=== PATIENT | male | born 1970 | race Caucasian/White ===

== ENCOUNTER 2017-08-27 06:51 | Emergency (ER) | payer BC ==
[2017-08-27] MEDS ORDERED: ONDANSETRON HCL 8 MG TABLET PO ONE (07:24)
[2017-08-27] MEDS ORDERED: KETOROLAC TROMETHAMINE 60 MG/2 ML SDV IM ONE (07:24)
--- NOTE | 2017-08-27 07:24 | ER Document Report ---
ED General - General Chief Complaint: Possible Kidney Stone Stated Complaint: FLANK PAIN Time Seen by Provider: 08/27/17 07:06 Mode of Arrival: Ambulatory Information source: Patient Notes: 47-year-old male presents with complaints of flank pain. Patient notes the pain is on the left flank, started last night, used warm bath no imporvement. pt denies any fevers or chills. admits to nausea and dry heaves. pt notes that the symptoms have worsened. last kidney stone was 4 years ago. denies any fevers or chills. TRAVEL OUTSIDE OF THE [place] IN LAST 30 DAYS: No - HPI Onset: Yesterday Onset/Duration: Sudden Quality of pain: Sharp Severity: Moderate Pain Level: 3 Associated symptoms: Nausea Exacerbated by: Denies Relieved by: Denies Similar symptoms previously: Yes Recently seen / treated by doctor: No - Related Data Allergies/Adverse Reactions: No Known Allergies Allergy (Verified 08/27/17 08:32) Past Medical History - Social History Smoking Status: Never Smoker Cigarette use (# per day): No Chew tobacco use (# tins/day): No Smoking Education Provided: No Family History: Reviewed & Not Pertinent - Past Medical History Cardiac Medical History: Reports: Hx Hypertension - DX 4 YEARS AGO Pulmonary Medical History: Denies: Hx Tuberculosis Renal/ Medical History: Reports: Hx Kidney Stones Past Surgical History: Denies: Hx Adenoidectomy, Hx Pacemaker - Immunizations Hx Diphtheria, Pertussis, Tetanus Vaccination: Yes Review of Systems - Review of Systems Notes: REVIEW OF SYSTEMS: CONSTITUTIONAL : Denies fever, chills, or sweats. Denies recent illness. EENT: Denies eye, ear, throat, or mouth pain or symptoms. Denies nasal or sinus congestion or discharge. Denies throat, tongue, or mouth swelling or difficulty swallowing. CARDIOVASCULAR: Denies chest pain. Denies palpitations or racing or irregular heart beat. Denies ankle edema. RESPIRATORY: Denies cough, cold, or chest congestion. Denies shortness of breath, difficulty breathing, or wheezing. GASTROINTESTINAL: Admits to flank pain GENITOURINARY: Admits to difficulty urinating MUSCULOSKELETAL: Denies back or neck pain or stiffness. Denies joint pain or swelling. SKIN: Denies rash, lesions or sores. HEMATOLOGIC : Denies easy bruising or bleeding. LYMPHATIC: Denies swollen, enlarged glands. NEUROLOGICAL: Denies confusion or altered mental status. Denies passing out or loss of consciousness. Denies dizziness or lightheadedness. Denies headache. Denies weakness or paralysis or loss of use of either side. Denies problems with gait or speech. Denies sensory loss, numbness, or tingling. Denies seizures. PSYCHIATRIC: Denies anxiety or stress. Denies depression, suicidal ideation, or homicidal ideation. ALL OTHER SYSTEMS REVIEWED AND NEGATIVE. Dictation was performed using [employer] voice recognition software PHYSICAL EXAMINATION: GENERAL: Well-appearing, well-nourished and in no acute distress. HEAD: Atraumatic, normocephalic. EYES: Pupils equal round and reactive to light, extraocular movements intact, sclera anicteric, conjunctiva are normal. ENT: Nares patent, oropharynx clear without exudates. Moist mucous membranes. NECK: Normal range of motion, supple without lymphadenopathy LUNGS: Breath sounds clear to auscultation bilaterally and equal. No wheezes rales or rhonchi. HEART: Regular rate and rhythm without murmurs ABDOMEN: Soft, nontender, nondistended abdomen left CVA tenderness noted. No guarding, no rebound. No masses appreciated. Musculoskeletal: Normal range of motion, no pitting or edema. No cyanosis. NEUROLOGICAL: Cranial nerves grossly intact. Normal speech, normal gait. Normal sensory, motor exams PSYCH: Normal mood, normal affect. SKIN: Warm, Dry, normal turgor, no rashes or lesions noted. Physical Exam - Vital signs Vitals: Temp Pulse Resp BP Pulse Ox 98.1 F 85 16 185/110 H 100 08/27/17 06:56 08/27/17 06:56 08/27/17 06:56 08/27/17 06:56 08/27/17 06:56 Course - Re-evaluation Re-evalutation: 08/27/17 07:56 Patient's presentation is most consistent with a kidney stone, I did offer a CT he wishes to defer at this time urinalysis is pending 08/27/17 08:59 Patient notes flank pain has improved significantly, urinalysis notes no sign of infection, will discharge symptomatically After performing a Medical Screening Examination, I estimate there is LOW risk for ACUTE APPENDICITIS, BOWEL OBSTRUCTION, ACUTE CHOLECYSTITIS, PERFORATED DIVERTICULITIS, INCARCERATED HERNIA, PANCREATITIS, TESTICULAR TORSION or PERFORATED ULCER, thus I consider the discharge disposition reasonable. Also, there is no evidence or peritonitis, sepsis, or toxicity. I have reevaluated this patient multiple times and no significant life threatening changes are noted. The patient and I have discussed the diagnosis and risks, and we agree with discharging home with close follow-up with the understanding that symptoms and presentations can change. We also discussed returning to the Emergency Department immediately if new or worsening symptoms occur. We have discussed the symptoms which are most concerning (e.g., bloody stool, fever, changing or worsening pain, intractable vomiting - standard verbal up date) that necessitate immediate return. - Vital Signs Vital signs: Temp Pulse Resp BP Pulse Ox 98.1 F 107 H 18 161/91 H 99 08/27/17 08:18 08/27/17 08:18 08/27/17 08:18 08/27/17 08:18 08/27/17 08:18 - Laboratory Laboratory results interpreted by me: 08/27/17 08:05 Urine Protein 30 H Urine Glucose (UA) 150 H Urine Ketones TRACE H Urine Blood MODERATE H Discharge - Discharge Clinical Impression: Kidney stone HTN (hypertension) Qualifiers: Hypertension type: essential hypertension Qualified Code(s): I10 - Essential ( primary) hypertension Condition: Stable Disposition: HOME, SELF-CARE Instructions: Kidney Stone ([facility]) Prescriptions: Ketorolac Tromethamine [Toradol 10 mg Tablet] 10 mg PO Q8 #9 tablet Metoclopramide HCl [Reglan 10 mg Tablet] 1 - 2 tab PO Q6 #25 tablet Oxycodone HCl/Acetaminophen [Percocet 5-325 mg Tablet] 1 tab PO Q6 #15 tab Tamsulosin HCl [Flomax 0.4 mg Cap.sr] 0.4 mg PO DAILY #7 cap.sr.24h Forms: Return to Work Referrals: SARA ANDERSON [NO LOCAL MD] - Follow up as needed MARYSOL LANDEROS MD [TI BARBOZA] - Follow up as needed
[2017-08-27 08:36] LABS: APPEARANCE,URINE CLEAR; BILIRUBIN,URINE NEGATIVE (NEGATIVE); COLOR,URINE YELLOW; GLUCOSE, URINE 150 mg/dL (NEGATIVE); KETONES,URINE TRACE mg/dL (NEGATIVE); LEUKOCYTE ESTERASE,URINE NEGATIVE (NEGATIVE); NITRITE,URINE NEGATIVE (NEGATIVE); PROTEIN,URINE 30 mg/dL (NEGATIVE); URINE SPECIFIC GRAVITY 1.018; UROBILINOGEN,URINE NEGATIVE mg/dL (<2.0)
[2017-08-27 09:14] VITALS: BP 144/89
== END 2017-08-27 09:14 | disposition home or self-care (01) ==
LOC: ER 06:51
DX: N20.0 Calculus of kidney (principal); R10.9 Unspecified abdominal pain; I10 Essential (primary) hypertension; R11.0 Nausea; Z87.442 Personal history of urinary calculi
CPT/HCPCS: 99284; 96372; 81001; J1885; S0119

== ENCOUNTER 2020-03-24 22:39 | Inpatient (IN) | payer BC ==
--- NOTE | 2020-03-24 23:14 | ER Document Report ---
ED Medical Screen (RME) - General Stated Complaint: COVID POS TROUBLE BREATHING Time Seen by Provider: 03/24/20 23:09 Primary Care Provider: CHAZ RODRIGUEZ MD [Primary Care Provider] - Follow up as needed Notes: Patient states he has been sick for the past week and tested positive for Covid today. Patient reports difficulty breathing that started this evening. Patient reports mild fever with some chest discomfort. Patient denies any nausea vomiting or diarrhea. Patient does have a history of hypertension, diabetes, dyslipidemia, migraines and a previous TIA. I have greeted and performed a rapid initial assessment of this patient. A comprehensive ED assessment and evaluation of the patient, analysis of test results and completion of the medical decision making process will be conducted by additional ED providers. TRAVEL OUTSIDE OF THE [place] IN LAST 30 DAYS: No - Related Data Allergies/Adverse Reactions: No Known Allergies Allergy (Verified 08/27/17 08:32) Past Medical History - Past Medical History Cardiac Medical History: Reports: Hx Hypercholesterolemia, Hx Hypertension - DX 4 YEARS AGO Pulmonary Medical History: Denies: Hx Tuberculosis Endocrine Medical History: Reports: Hx Diabetes Mellitus Type 1 Renal/ Medical History: Reports: Hx Kidney Stones. Denies: Hx Peritoneal Dialysis Past Surgical History: Denies: Hx Adenoidectomy, Hx Pacemaker - Immunizations Hx Diphtheria, Pertussis, Tetanus Vaccination: Yes Physical Exam - Vital signs Vitals: Temp Pulse Resp BP Pulse Ox 98.5 F 112 H 23 H 185/113 H 88 L 03/24/20 22:49 03/24/20 22:49 03/24/20 22:49 03/24/20 22:49 03/24/20 22:49 - Respiratory Respiratory status: Tachypnea Breath sounds: Nonproductive cough, Rales - Cardiovascular Rhythm: Regular Heart sounds: S1 appreciated, S2 appreciated Course - Vital Signs Vital signs: Temp Pulse Resp BP Pulse Ox 98.5 F 112 H 23 H 185/113 H 88 L 03/24/20 22:49 03/24/20 22:49 03/24/20 22:49 03/24/20 22:49 03/24/20 22:49 Doctor's Discharge - Discharge Referrals: CHAZ RODRIGUEZ MD [Primary Care Provider] - Follow up as needed
[2020-03-25 02:21] LABS: ABSOLUTE MONOCYTES (AUTO) 0.5 10^3/uL (0.1-1.4); ABSOLUTE NEUT (AUTO) 6.1 10^3/uL (1.7-8.2); BASOPHILS % (AUTO) 0.2 % (0-2); HEMATOCRIT 43.7 % (37.9-51.0); HEMOGLOBIN 14.9 g/dL (13.5-17.0); LYMPHOCYTES % (AUTO) 13.5 % (13-45); MEAN CORPUSCULAR HEMOGLOBIN 27.6 pg (27.0-33.4); MEAN CORPUSCULAR HGB CONC 34.1 g/dL (32.0-36.0); MEAN CORPUSCULAR VOLUME 81 fl (80-97); MONOCYTES % (AUTO) 6.2 % (3-13); PLATELET COUNT 264 10^3/uL (150-450); RED BLOOD COUNT 5.42 10^6/uL (4.35-5.55); SEGMENTED NEUTROPHILS % (AUTO) 80.1 % (42-78); TOTAL CELLS COUNTED % (AUTO) 100 %; WHITE BLOOD COUNT 7.6 10^3/uL (4.0-10.5)
[2020-03-25 02:36] LABS: ALBUMIN 3.6 g/dL (3.5-5.0); ALKALINE PHOSPHATASE 82 U/L (38-126); ANION GAP 10 (5-19); ASPARTATE AMINO TRANSFERASE 56 U/L (17-59); BILIRUBIN,DIRECT 0.3 mg/dL (0.0-0.4); BILIRUBIN,TOTAL 0.8 mg/dL (0.2-1.3); BLOOD UREA NITROGEN 23 mg/dL (7-20); CALCIUM 9.1 mg/dL (8.4-10.2); CARBON DIOXIDE 30 mmol/L (22-30); CHLORIDE 104 mmol/L (98-107); GLUCOSE 169 mg/dL (75-110); POTASSIUM 4.5 mmol/L (3.6-5.0); TOTAL PROTEIN 6.7 g/dL (6.3-8.2)
--- NOTE | 2020-03-25 03:50 | RADIOLOGY REPORT (SQ) ---
CHEST X-RAY 1 VIEW on 03/25/2020 at 3:05 AM CLINICAL INDICATION: Chest pain, shortness of breath, positive COVID 19 COMPARISON: 01/17/2012 FINDINGS: There has been development of extensive bilateral interstitial and airspace opacities consistent with COVID 19 pneumonia. Vascular calcification is noted in the aorta. Cardiac, hilar and mediastinal contours are within normal limits. IMPRESSION: Development of bilateral COVID 19 pneumonia.
[2020-03-25] MEDS ORDERED: NORMAL SALINE 1000 ML 1,000 ML IV ONE (06:34)
[2020-03-25] MEDS ORDERED: LISINOPRIL 10 MG TABLET PO ONE (06:34)
[2020-03-25] MEDS ORDERED: LABETALOL HCL INJ 20 MG/4 ML DISP.SYRIN IV ONE (06:34)
[2020-03-25] MEDS ORDERED: AZITHROMYCIN INJ 500 MG VIAL IV ONE (06:35)
[2020-03-25] MEDS ORDERED: CEFTRIAXONE INJ 1000 MG VIAL IV ONE (06:35)
--- NOTE | 2020-03-25 06:41 | ER Document Report ---
ED General - General Chief Complaint: Breathing Difficulty Stated Complaint: COVID POS TROUBLE BREATHING Time Seen by Provider: 03/24/20 23:09 Primary Care Provider: CHAZ HALE MD [Primary Care Provider] - Follow up as needed TRAVEL OUTSIDE OF THE [place] IN LAST 30 DAYS: No - HPI Notes: Chief complaint: Cough and difficulty breathing History of present illness: 50-year-old male non-smoker followed by Dr. Danyel Hale with history of diabetes mellitus type 2, hypertension, hyperlipidemia and recurrent nephrolithiasis now presents with 1 week history of cough and scant dark sputum production with some pleuritic discomfort. No fever. Nausea wit hout vomiting. No definite history of Covid exposure. 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 - Related Data Allergies/Adverse Reactions: No Known Allergies Allergy (Verified 08/27/17 08:32) Past Medical History - General Information source: Patient - Social History Smoking Status: Never Smoker Chew tobacco use (# tins/day): No Frequency of alcohol use: None Drug Abuse: None Family History: Reviewed & Not Pertinent - Past Medical History Cardiac Medical History: Reports: Hx Hypercholesterolemia, Hx Hypertension - DX 4 YEARS AGO Pulmonary Medical History: Denies: Hx Tuberculosis Neurological Medical History: Reports: Hx Migraine Endocrine Medical History: Reports: Hx Diabetes Mellitus Type 2. Denies: Hx Diabetes Mellitus Type 1 Renal/ Medical History: Reports: Hx Kidney Stones. Denies: Hx Peritoneal Dialysis Past Surgical History: Denies: Hx Adenoidectomy, Hx Pacemaker - Immunizations Hx Diphtheria, Pertussis, Tetanus Vaccination: Yes Review of Systems - Review of Systems Notes: Constitutional: Negative for fever. HENT: Negative for sore throat. Eyes: Negative for visual changes. Cardiovascular: Bilateral pleuritic chest pain which is mild. Respiratory: As per HPI. Gastrointestinal: As per HPI. Genitourinary: Negative for dysuria. Musculoskeletal: Negative for back pain. Skin: Negative for rash. Neurological: Negative for headaches, weakness or numbness. 10 point ROS negative except as marked above and in HPI. Physical Exam - Vital signs Vitals: Temp Pulse Resp BP Pulse Ox 98.5 F 112 H 23 H 185/113 H 88 L 03/24/20 22:49 03/24/20 22:49 03/24/20 22:49 03/24/20 22:49 03/24/20 22:49 - Notes Notes: GENERAL: Middle-age male who appears mildly tachypneic. SKIN: Good turgor no rashes. HEAD: Normocephalic atraumatic. EYES: PERRLA. EOMI. Conjunctivae and sclerae clear. EARS: CANALS AND TMS CLEAR. NOSE: CLEAR. MOUTH: Moist mucosa. Good dentition. No stridor or edema. No drooling. NECK: Supple. No masses or thyromegaly. No adenopathy. Carotids 2+ without bruits. No JVD. BACK: Symmetrical without tenderness. CHEST: Rattling cough. Mildly tachypneic no use of accessory muscles. Breath sounds symmetrical with scattered rhonchi bilaterally. HEART: Regular rhythm. No murmur gallop or rub. ABDOMEN: Mildly obese. Soft nontender without masses, organomegaly or rebound. Bowel sounds normally active. No bruits. GENITALIA: Deferred. EXTREMITIES: No edema. No calf tenderness. Cap refill less than 1.5 seconds. Dorsalis pedis and posterior tibial pulses 3+ and symmetrical. NEUROLOGICAL: GCS 15. Alert and oriented x3. Normal gait. Fluent speech. Cranial nerves II through XII intact. Sensorimotor and cerebellar normal. Normal tone. PSYCHIATRIC: Appropriate affect. Course - Re-evaluation Re-evalutation: 03/25/20 07:26 Bilateral infiltrates consistent with Covid pneumonia unknown seropositivity for Covid. Clinical findings are consistent with progression of Covid pneumonia. New oxygen requirement. IV steroids. Additional coverage for potential bacterial superinfection of the lungs. Admitted by the hospitalist service. Patient was accepted for admission by Dr. Hernández - Vital Signs Vital signs: Temp Pulse Resp BP Pulse Ox 98.2 F 112 H 31 H 200/121 H 94 03/25/20 05:32 03/25/20 03:02 03/25/20 05:33 03/25/20 05:32 03/25/20 05:51 - Laboratory Results Result Diagrams: 03/25/20 01:46 03/25/20 01:46 Laboratory Results Interpreted: 03/25/20 03/25/20 01:46 01:46 Seg Neutrophils % 80.1 H BUN 23 H Glucose 169 H Critical Laboratory Results Reviewed: Yes Attending or Supervising Physician who Reviewed Labs: MARK BARRON - Radiology Results Radiology Results Interpreted: 03/25/20 07:23 Chest X-Ray 03/24/20 23:13 IMPRESSION: Development of bilateral COVID 19 pneumonia. Critical Radiology Results Reviewed: Yes Attending or Supervising Physician who Reviewed Radiology: MARK BARRON - EKG Interpretation by Me Additional EKG results interpreted by me: 03/25/20 07:24 Twelve-lead EKG reviewed by me contemporaneously: 03/24/2019 2322 hrs. Indication for study: Chest pain Rhythm: Sinus tachycardia Rate: 109 Intervals: Borderline QT prolongation with QTC 480 ms QRS axis: +[address]/T wave changes: None Comparison with prior tracing: Since prior tracing of 01/17/2012 the patient's rate has increased and there is new QT prolongation Interpretation: Sinus tachycardia and QT prolongation Discharge - Discharge Clinical Impression: COVID-19 positive test (U07.1, COVID-1 Bilateral pneumonia Qualifiers: Pneumonia type: due to unspecified organism Lung location: unspecified part of lung Qualified Code(s): J18.9 - Pneumonia, unspecified organism Condition: Fair Disposition: ADMITTED INPATIENT Admitting Provider: Dr. Diaz Unit Admitted: Medical Floor Referrals: CHAZ HALE MD [Primary Care Provider] - Follow up as needed
[2020-03-25] MEDS ORDERED: ONDANSETRON HCL INJ/PF 4 MG/2 ML SDV IV ONE (06:53)
[2020-03-25] MEDS ORDERED: DEXAMETHASONE SOD PHOS INJ 10 MG/1 ML VIAL IV ONE (07:23)
[2020-03-25 07:30] LABS: ARTERIAL BLOOD BASE EXCESS 2.4 mmol/L; ARTERIAL BLOOD FIO2 2L; ARTERIAL BLOOD O2 SATURATION 91.7 % (94-98); ARTERIAL BLOOD PCO2 33.1 mmHg (35-45)
--- NOTE | 2020-03-25 07:50 | EKG REPORT ---
SEVERITY:- ABNORMAL ECG - SINUS TACHYCARDIA LEFT ATRIAL ABNORMALITY BORDERLINE RIGHT AXIS DEVIATION BORDERLINE PROLONGED QT INTERVAL : Confirmed by: Dillon Mcallister MD 25-Mar-2020 07:49:11
[2020-03-25] MEDS ORDERED: CEFTRIAXONE 1 GM/D5W RTU 1 GM/50 ML RTUPB IV ONE (09:00)
[2020-03-25] MEDS ORDERED: DEXTROSE 50%-WATER 25 GM/50 ML DISP.SYRIN IV PRN ×2 (10:18)
[2020-03-25] MEDS ORDERED: GLUCAGON,HUMAN RECOMB 1 MG INJ IM PRN (10:18)
[2020-03-25] MEDS ORDERED: DEXTROSE 40% GEL 15 GM TUBE PO PRN ×2 (10:18)
[2020-03-25] MEDS ORDERED: ONDANSETRON HCL INJ/PF 4 MG/2 ML SDV IV PRN (10:21)
[2020-03-25] MEDS ORDERED: ACETAMINOPHEN 325 MG TABLET PO PRN (10:21)
--- NOTE | 2020-03-25 10:35 | PDOC H&P ---
History of Present Illness Admission Date/PCP: 03/25/20 07:44 CHAZ RODRIGUEZ MD History of Present Illness: STACY BROOKS is a 50 year old male with a history of obesity, hypertension, non -insulin-dependent diabetes mellitus, hyperlipidemia, and a reported history of a TIA 13 years ago. He presents with worsening shortness of breath. He says that he first started feeling bad a little over a week ago, approximately 1 to 2 days before Bassem. He said he is mostly just felt fatigue and malaise, and he had a bit of a cough that developed after several days. He went to a local urgent care and got tested for coronavirus, and he said he tested positive. He was not hypoxic and so he was sent home. He said he has not taken anything for his symptoms other than some [id number] cough syrup. He said he had worsening shortness of breath over the past couple of days, progressing to the point that he cannot walk more than a few steps without getting really short of breath. His oxygen saturations were in the upper 80s on room air and he was a little tachypneic, and he has been put on 3 L on the nasal cannula and his saturations are now in the mid to upper 90s. He is not had a fever that he knows of for certain. He has never smoked and does not wear oxygen at home. He was noted to have bilateral patchy opacities on chest x-ray. He was a little tachycardic. Past Medical History Cardiac Medical History: Reports: Hyperlipidema, Hypertension - DX 4 YEARS AGO Pulmonary Medical History: Denies: Tuberculosis Neurological Medical History: Reports: Migraine Endocrine Medical History: Reports: Diabetes Mellitus Type 2 Denies: Diabetes Mellitus Type 1 Past Surgical History Past Surgical History: Denies: Pacemaker Social History Smoking Status: Never Smoker Electronic Cigarette use?: No Hx Recreational Drug Use: No Hx Prescription Drug Abuse: No Family History Family History: Reviewed & Not Pertinent Parental Family History Reviewed: No - Unknown Children Family History Reviewed: Unknown Sibling(s) Family History Reviewed.: Unknown Medication/Allergy Home Medications: No Home Medications 1 01/17/12 Alprazolam [Xanax 0.5 mg Tablet] 0.5 mg PO BIDP PRN #0 tablet 01/20/12 Amlodipine Besylate [Norvasc 5 mg Tablet] 5 mg PO DAILY #0 tablet 01/20/12 Aspirin [Aspirin 325 mg Tablet] 325 mg PO DAILY #0 tablet 01/20/12 Lisinopril [Prinivil 10 mg Tablet] 10 mg PO Q12 #0 tablet 01/20/12 Simvastatin [Zocor 40 mg Tablet] 40 mg PO QHS #0 tablet 01/20/12 Escitalopram Oxalate [Lexapro] 03/25/12 Metoprolol Tartrate [Lopressor 25 Mg Tablet] 25 mg PO 03/25/12 Ketorolac Tromethamine [Toradol 10 mg Tablet] 10 mg PO Q8 #9 tablet 08/27/17 Metoclopramide HCl [Reglan 10 mg Tablet] 1 - 2 tab PO Q6 #25 tablet 08/27/17 Oxycodone HCl/Acetaminophen [Percocet 5-325 mg Tablet] 1 tab PO Q6 #15 tab 08/27/17 Tamsulosin HCl [Flomax 0.4 mg Cap.sr] 0.4 mg PO DAILY #7 cap.sr.24h 08/27/17 Allergies/Adverse Reactions: No Known Allergies Allergy (Verified 08/27/17 08:32) Review of Systems All systems: reviewed and no additional remarkable complaints except as stated - All systems were reviewed and were negative except as noted in the HPI Physical Exam Vital Signs: Temp Pulse Resp BP Pulse Ox 98.8 F 112 H 32 H 155/95 H 94 03/25/20 08:14 03/25/20 03:02 03/25/20 08:01 03/25/20 08:01 03/25/20 08:01 Intake & Output 03/24/20 03/25/20 03/26/20 06:59 06:59 06:59 Intake Total 1050 Output Total 350 Balance 700 Weight 101.9 kg General appearance: PRESENT: cooperative, disheveled, mild distress, obese Head exam: PRESENT: atraumatic, normocephalic Eye exam: PRESENT: EOMI, PERRLA. ABSENT: conjunctival injection, nystagmus, scleral icterus Ear exam: PRESENT: normal external ear exam Neck exam: PRESENT: full ROM. ABSENT: carotid bruit, JVD, lymphadenopathy, meningismus, tenderness, thyromegaly Respiratory exam: PRESENT: crackles - Bibasilar, symmetrical, tachypnea, unlabored. ABSENT: accessory muscle use, chest wall tenderness, prolonged expiratory phas, rhonchi, wheezes Cardiovascular exam: PRESENT: +S1, +S2, tachycardia Pulses: PRESENT: normal carotid pulses Vascular exam: PRESENT: normal capillary refill GI/Abdominal exam: PRESENT: normal bowel sounds, soft. ABSENT: distended, guarding, rebound, tenderness Extremities exam: ABSENT: clubbing, pedal edema Musculoskeletal exam: PRESENT: normal inspection. ABSENT: deformity Neurological exam: PRESENT: alert, awake, oriented to person, oriented to place, oriented to time, oriented to situation, CN II-XII grossly intact. ABSENT: motor sensory deficit Psychiatric exam: PRESENT: anxious Skin exam: PRESENT: dry, warm Results Laboratory Results: 03/25/20 01:46 03/25/20 01:46 03/25/20 03/25/20 03/25/20 01:46 01:46 06:44 WBC 7.6 RBC 5.42 Hgb 14.9 Hct 43.7 MCV 81 MCH 27.6 MCHC 34.1 RDW 14.0 Plt Count 264 Seg Neutrophils % 80.1 H Carbonic Acid 1.00 L HCO3/H2CO3 Ratio 25:1 ABG pH 7.50 H ABG pCO2 33.1 L ABG pO2 56.0 L ABG HCO3 25.0 H ABG O2 Saturation 91.7 L ABG Base Excess 2.4 FiO2 2L Sodium 143.8 Potassium 4.5 Chloride 104 Carbon Dioxide 30 Anion Gap 10 BUN 23 H Creatinine 1.24 Est GFR ( Amer) > 60 Glucose 169 H Calcium 9.1 Total Bilirubin 0.8 AST 56 Alkaline Phosphatase 82 Total Protein 6.7 Albumin 3.6 03/25/20 01:46 Troponin I 0.016 Impressions: Chest X-Ray 03/24/20 23:13 IMPRESSION: Development of bilateral COVID 19 pneumonia. Assessment and Plan - Diagnosis (1) Acute hypoxemic respiratory failure Is this a current diagnosis for this admission?: Yes (2) Pneumonia due to COVID-19 virus Is this a current diagnosis for this admission?: Yes (3) Non-insulin dependent diabetes mellitus Is this a current diagnosis for this admission?: Yes (4) Obesity (BMI 30-39.9) Is this a current diagnosis for this admission?: Yes (5) Hypertension Qualifiers: Hypertension type: essential hypertension Qualified Code(s): I10 - Essential (primary) hypertension Is this a current diagnosis for this admission?: Yes - Plan Summary Summary: Due to the current literature that shows that convalescent plasma and remdesivir are ineffective, we will treat him with the MATH+ protocol, consisting of IV Solu-Medrol, ivermectin, doxycycline, vitamin B complex, vitamin C, vitamin D3, melatonin, and zinc. We will check his ferritin and CRP levels and follow the trend. We will try to keep his magnesium greater than 2. We will use supplemental O2 to maintain SPO2 greater than 90%. If his breathing deteriorates, will escalate his steroids. We anticipate that his glucoses will go higher because the IV steroids we will cover him with an insulin sliding scale. Cardiac and diabetic diet. We will resume his home antihypertensives. DVT prophylaxis for now, if his D-dimer comes back greater than 1 we will therapeutically anticoagulate. - Time Time Spent with patient: 35 or more minutes Anticipated Discharge Disposition: Unknown Anticipated Discharge Timeframe: Unknown - Inpatient Certification Based on my medical assessment, after consideration of the patient's comorbidities, presenting symptoms, or acuity I expect that the services needed warrant INPATIENT care.: Yes I certify that my determination is in accordance with my understanding of Medicare's requirements for reasonable and necessary INPATIENT services [42 CFR 412.3e].: Yes Medical Necessity: Significant Comorbidiites Make Outpatient Treatment Too Risky, Need Close Monitoring Due to Risk of Patient Decompensation, Need For Continuous Telemetry Monitoring, Need for IV Antibiotics, Risk of Complication if Not Cared For in Hospital
[2020-03-25] MEDS: ZINC SULFATE 220 MG CAPSULE PO SCH (11:21)
[2020-03-25] MEDS: ASCORBIC ACID 500 MG TABLET PO SCH ×3 (11:22→23:56)
[2020-03-25] MEDS: CHOLECALCIFEROL (D3) 1,000 UNIT (25 MCG) TABLET PO SCH (11:22)
[2020-03-25] MEDS ORDERED: IVERMECTIN 3 MG TABLET PO ONE (12:00)
[2020-03-25] MEDS: VITAMIN B COMPLEX TABLET PO SCH (12:09)
[2020-03-25] MEDS: DOXYCYCLINE HYCLATE 100 MG in DEXTROSE 5%-WATER 250 ML IV SCH ×2 (12:10→21:29)
[2020-03-25] MEDS: ENOXAPARIN SODIUM INJ 40 MG/0.4 ML DISP.SYRIN SUBCUT SCH (12:10)
[2020-03-25] MEDS: INSULIN LISPRO 100 UNIT/ML 3 ML VIAL SUBCUT SCH ×3 (14:29→21:30)
[2020-03-25 14:54] LABS: INTERNATIONAL RATION (INR) 0.99; PROTHROMBIN TIME 13.3 SEC (11.4-15.4)
[2020-03-25 14:55] LABS: PARTIAL THROMBOPLASTIN TIME 31.6 SEC (23.5-35.8)
[2020-03-25 14:57] LABS: D-DIMER 2.01 ug/mL (0.00-0.50)
[2020-03-25 15:57] LABS: C-REACTIVE PROTEIN 258.6 mg/L (<10.0)
[2020-03-25] MEDS: METHYLPREDNISOLONE INJ 40 MG/1 ML SDV IV SCH (18:06)
[2020-03-25] MEDS ORDERED: AMLODIPINE BESYLATE 5 MG TABLET PO ONE (20:45)
[2020-03-25] MEDS: MELATONIN 5 MG TABLET PO SCH (21:30)
[2020-03-26] MEDS: METHYLPREDNISOLONE INJ 40 MG/1 ML SDV IV SCH ×2 (05:35→18:18)
[2020-03-26] MEDS: ASCORBIC ACID 500 MG TABLET PO SCH ×4 (05:35→23:36)
[2020-03-26 06:37] LABS: ABSOLUTE LYMPHOCYTES (AUTO) 1.3 10^3/uL (0.5-4.7); ABSOLUTE MONOCYTES (AUTO) 0.7 10^3/uL (0.1-1.4); BASOPHILS % (AUTO) 0.2 % (0-2); HEMATOCRIT 40.4 % (37.9-51.0); HEMOGLOBIN 14.1 g/dL (13.5-17.0); LYMPHOCYTES % (AUTO) 15.8 % (13-45); MEAN CORPUSCULAR HGB CONC 34.9 g/dL (32.0-36.0); MEAN CORPUSCULAR VOLUME 80 fl (80-97); MONOCYTES % (AUTO) 8.7 % (3-13); PLATELET COUNT 300 10^3/uL (150-450); RED BLOOD COUNT 5.02 10^6/uL (4.35-5.55); SEGMENTED NEUTROPHILS % (AUTO) 75.3 % (42-78); TOTAL CELLS COUNTED % (AUTO) 100 %; WHITE BLOOD COUNT 7.9 10^3/uL (4.0-10.5)
[2020-03-26 06:58] LABS: ALBUMIN 3.4 g/dL (3.5-5.0); ALKALINE PHOSPHATASE 72 U/L (38-126); ANION GAP 10 (5-19); ASPARTATE AMINO TRANSFERASE 60 U/L (17-59); BILIRUBIN,DIRECT 0.5 mg/dL (0.0-0.4); BILIRUBIN,TOTAL 0.8 mg/dL (0.2-1.3); BLOOD UREA NITROGEN 29 mg/dL (7-20); CARBON DIOXIDE 26 mmol/L (22-30); CHLORIDE 100 mmol/L (98-107); GLUCOSE 201 mg/dL (75-110); POTASSIUM 4.3 mmol/L (3.6-5.0); TOTAL PROTEIN 6.3 g/dL (6.3-8.2)
[2020-03-26 07:15] LABS: C-REACTIVE PROTEIN 191.1 mg/L (<10.0)
[2020-03-26] MEDS: INSULIN LISPRO 100 UNIT/ML 3 ML VIAL SUBCUT SCH ×4 (07:47→22:16)
[2020-03-26] MEDS: VITAMIN B COMPLEX TABLET PO SCH (09:33)
[2020-03-26] MEDS: DOXYCYCLINE HYCLATE 100 MG in DEXTROSE 5%-WATER 250 ML IV SCH ×2 (09:33→22:17)
[2020-03-26] MEDS: CHOLECALCIFEROL (D3) 1,000 UNIT (25 MCG) TABLET PO SCH (09:33)
[2020-03-26] MEDS: ZINC SULFATE 220 MG CAPSULE PO SCH (09:33)
[2020-03-26] MEDS: AMLODIPINE BESYLATE 5 MG TABLET PO SCH ×2 (09:33→18:18)
[2020-03-26] MEDS: ENOXAPARIN SODIUM INJ 40 MG/0.4 ML DISP.SYRIN SUBCUT SCH (09:33)
--- NOTE | 2020-03-26 18:05 | PDOC PROGRESS REPORT ---
Subjective Date:: 03/26/20 Subjective:: No adverse events overnight. No new complaints. Vital signs been stable. He i s on 3 L and his oxygen saturations are in the mid 90s. He looks very comfortable. He says he feels a lot better today. He has been eating and drinking without difficulty. Reason For Visit: HYPOXEMIA, COIVD PNEUMONIA Physical Exam Vital Signs: Temp Pulse Resp BP Pulse Ox 98.3 F 101 H 22 H 154/91 H 93 03/26/20 16:23 03/26/20 16:23 03/26/20 16:23 03/26/20 16:23 03/26/20 16:23 Intake & Output 03/25/20 03/26/20 03/27/20 06:59 06:59 06:59 Intake Total 2625 800 Output Total 1275 700 Balance 1350 100 Weight 101.9 kg 101.4 kg General appearance: PRESENT: cooperative, disheveled, no apparent distress, obese Respiratory exam: PRESENT: crackles - Bibasilar, symmetrical, unlabored. ABSENT: accessory muscle use, chest wall tenderness, prolonged expiratory phase, rhonchi, wheezes, tachypnea Cardiovascular exam: PRESENT: +S1, +S2, RRR Pulses: PRESENT: normal carotid pulses Vascular exam: PRESENT: normal capillary refill GI/Abdominal exam: PRESENT: normal bowel sounds, soft. ABSENT: distended, guarding, rebound, tenderness Extremities exam: ABSENT: clubbing, pedal edema Musculoskeletal exam: PRESENT: normal inspection. ABSENT: deformity Neurological exam: PRESENT: alert, awake, oriented to person, oriented to place, oriented to time, oriented to situation Psychiatric exam: PRESENT: Appropriate affect, normal mood Skin exam: PRESENT: dry, warm Results Laboratory Results: 03/26/20 06:16 03/26/20 06:16 03/26/20 03/26/20 06:16 06:16 WBC 7.9 RBC 5.02 Hgb 14.1 Hct 40.4 MCV 80 MCH 28.0 MCHC 34.9 RDW 14.0 Plt Count 300 Seg Neutrophils % 75.3 Sodium 136.3 L Potassium 4.3 Chloride 100 Carbon Dioxide 26 Anion Gap 10 BUN 29 H Creatinine 1.19 Est GFR ( Amer) > 60 Glucose 201 H Calcium 9.0 Magnesium 2.0 Ferritin 1020.00 H Total Bilirubin 0.8 AST 60 H Alkaline Phosphatase 72 C-Reactive Protein 191.1 H Total Protein 6.3 Albumin 3.4 L 03/25/20 01:46 Troponin I 0.016 Impressions: Chest X-Ray 03/24/20 23:13 IMPRESSION: Development of bilateral COVID 19 pneumonia. Assessment and Plan - Diagnosis (1) Acute hypoxemic respiratory failure Is this a current diagnosis for this admission?: Yes (2) Pneumonia due to COVID-19 virus Is this a current diagnosis for this admission?: Yes (3) Non-insulin dependent diabetes mellitus Is this a current diagnosis for this admission?: Yes (4) Obesity (BMI 30-39.9) Is this a current diagnosis for this admission?: Yes (5) Hypertension Qualifiers: Hypertension type: essential hypertension Qualified Code(s): I10 - Essential (primary) hypertension Is this a current diagnosis for this admission?: Yes - Plan Summary Summary: We continue with the MATH+ protocol for COVID-19. Patient is showing signs of responding. Heart rate and respiratory rate have come down. He feels like his breathing is more comfortable. Markers of inflammation are trending down. He will receive his second dose of ivermectin tomorrow. We will continue with IV steroids at the current level for now. When he gets off oxygen we can transition him to prednisone. We will continue to wean oxygen as tolerated. We have resumed his home medications for hypertension and hyperlipidemia. - Time Time Spent with patient: 15-24 minutes Anticipated Discharge Disposition: Unknown Anticipated Discharge Timeframe: Unknown
[2020-03-26] MEDS: METOPROLOL TARTRATE 25 MG TABLET PO SCH (18:18)
[2020-03-26] MEDS ORDERED: ATORVASTATIN CALCIUM 20 MG TABLET PO SCH (22:00)
[2020-03-26] MEDS: MELATONIN 5 MG TABLET PO SCH (22:16)
[2020-03-27] MEDS: METHYLPREDNISOLONE INJ 40 MG/1 ML SDV IV SCH (06:01)
[2020-03-27] MEDS: ASCORBIC ACID 500 MG TABLET PO SCH ×2 (06:01→12:43)
[2020-03-27 06:33] LABS: ABSOLUTE LYMPHOCYTES (AUTO) 1.7 10^3/uL (0.5-4.7); ABSOLUTE MONOCYTES (AUTO) 1.2 10^3/uL (0.1-1.4); ABSOLUTE NEUT (AUTO) 12.7 10^3/uL (1.7-8.2); BASOPHILS % (AUTO) 0.2 % (0-2); HEMATOCRIT 39.8 % (37.9-51.0); HEMOGLOBIN 13.4 g/dL (13.5-17.0); LYMPHOCYTES % (AUTO) 10.9 % (13-45); MEAN CORPUSCULAR HEMOGLOBIN 27.3 pg (27.0-33.4); MEAN CORPUSCULAR HGB CONC 33.7 g/dL (32.0-36.0); MEAN CORPUSCULAR VOLUME 81 fl (80-97); MONOCYTES % (AUTO) 7.9 % (3-13); PLATELET COUNT 349 10^3/uL (150-450); RED BLOOD COUNT 4.92 10^6/uL (4.35-5.55); TOTAL CELLS COUNTED % (AUTO) 100 %; WHITE BLOOD COUNT 15.6 10^3/uL (4.0-10.5)
[2020-03-27 07:00] LABS: ALBUMIN 3.3 g/dL (3.5-5.0); ALKALINE PHOSPHATASE 70 U/L (38-126); ANION GAP 11 (5-19); ASPARTATE AMINO TRANSFERASE 53 U/L (17-59); BILIRUBIN,DIRECT 0.5 mg/dL (0.0-0.4); BILIRUBIN,TOTAL 0.7 mg/dL (0.2-1.3); BLOOD UREA NITROGEN 35 mg/dL (7-20); C-REACTIVE PROTEIN 53.2 mg/L (<10.0); CALCIUM 9.2 mg/dL (8.4-10.2); CARBON DIOXIDE 26 mmol/L (22-30); CHLORIDE 100 mmol/L (98-107); GLUCOSE 224 mg/dL (75-110); POTASSIUM 4.6 mmol/L (3.6-5.0); TOTAL PROTEIN 6.1 g/dL (6.3-8.2)
[2020-03-27] MEDS: INSULIN LISPRO 100 UNIT/ML 3 ML VIAL SUBCUT SCH ×2 (08:51→12:43)
[2020-03-27] MEDS ORDERED: IVERMECTIN 3 MG TABLET PO ONE (10:00)
[2020-03-27] MEDS ORDERED: LISINOPRIL 10 MG TABLET PO SCH (10:00)
[2020-03-27] MEDS: DOXYCYCLINE HYCLATE 100 MG in DEXTROSE 5%-WATER 250 ML IV SCH (11:03)
[2020-03-27] MEDS: VITAMIN B COMPLEX TABLET PO SCH (11:04)
[2020-03-27] MEDS: METOPROLOL TARTRATE 25 MG TABLET PO SCH (11:04)
[2020-03-27] MEDS: CHOLECALCIFEROL (D3) 1,000 UNIT (25 MCG) TABLET PO SCH (11:04)
[2020-03-27] MEDS: AMLODIPINE BESYLATE 5 MG TABLET PO SCH (11:04)
[2020-03-27] MEDS: ENOXAPARIN SODIUM INJ 40 MG/0.4 ML DISP.SYRIN SUBCUT SCH (11:05)
[2020-03-27] MEDS: ZINC SULFATE 220 MG CAPSULE PO SCH (11:05)
[2020-03-27 15:25] VITALS: BP 187/97
--- NOTE | 2020-03-27 17:03 | PDOC DISCHARGE SUMMARY ---
Impression - Admit/DC Date/PCP Admission Date/Primary Care Provider: 03/25/20 07:44 CHAZ RODRIGUEZ MD Discharge Date: 03/27/20 - Discharge Diagnosis (1) Acute hypoxemic respiratory failure Is this a current diagnosis for this admission?: Yes (2) Pneumonia due to COVID-19 virus Is this a current diagnosis for this admission?: Yes (3) Non-insulin dependent diabetes mellitus Is this a current diagnosis for this admission?: Yes (4) Obesity (BMI 30-39.9) Is this a current diagnosis for this admission?: Yes (5) Hypertension Is this a current diagnosis for this admission?: Yes - Assessment Summary: We continue with the MATH+ protocol for COVID-19. Patient is showing signs of responding. Heart rate and respiratory rate have come down. He feels like his breathing is more comfortable. Markers of inflammation are trending down. He will receive his second dose of ivermectin tomorrow. We will continue with IV steroids at the current level for now. When he gets off oxygen we can transition him to prednisone. We will continue to wean oxygen as tolerated. We have resumed his home medications for hypertension and hyperlipidemia. - Additional Information Resuscitation Status: Full Code Discharge Diet: Diabetic Discharge Activity: Activity As Tolerated, Balance Activity w/Rest Referrals: CHAZ RODRIGUEZ MD [Primary Care Provider] - (PATIENT WILL MAKE OWN FOLLOW UP APPT. ) Prescriptions: Prednisone 10 mg PO DAILY #48 [email or web address] Home Medications: Metoprolol Tartrate [Lopressor 25 mg Tablet] 25 mg PO BID 03/25/12 Amlodipine Besylate [Norvasc 5 mg Tablet] 5 mg PO BID 03/25/20 Atorvastatin Calcium [Lipitor 20 mg Tablet] 20 mg PO QHS 03/25/20 Lisinopril [Prinivil 10 mg Tablet] 10 mg PO DAILY 03/25/20 Ascorbic Acid [Vitamin C 500 mg Tablet] 1,000 mg PO Q6 tablet 03/27/20 Cholecalciferol (Vitamin D3) [Vitamin D3 1000 Unit Tablet] 2,000 unit PO DAILY tablet 03/27/20 Melatonin [Melatonin 5 mg Tablet] 10 mg PO QHS tablet 03/27/20 Prednisone 10 mg PO DAILY #48 tab.ds.pk 03/27/20 Vitamin B Complex [Vitamin B Complex Tablet] 1 tab PO DAILY tablet 03/27/20 Zinc Sulfate [Zinc-220 Capsule] 220 mg PO DAILY capsule 03/27/20 History of Present Illiness History of Present Illness: STACY BROOKS is a 50 year old male with a history of obesity, hypertension, nyb-[id number] diabetes mellitus, hyperlipidemia, and a reported history of a TIA 13 years ago. He presents with worsening shortness of breath. He says that he first started feeling bad a little over a week ago, approximately 1 to 2 days before Bassem. He said he is mostly just felt fatigue and malaise, and he had a bit of a cough that developed after several days. He went to a local urgent care and got tested for coronavirus, and he said he tested positive. He was not hypoxic and so he was sent home. He said he has not taken anything for his symptoms other than some [id number] cough syrup. He said he had worsening shortness of breath over the past couple of days, progressing to the point that he cannot walk more than a few steps without getting really short of breath. His oxygen saturations were in the upper 80s on room air and he was a little tachypneic, and he has been put on 3 L on the nasal cannula and his saturations are now in the mid to upper 90s. He is not had a fever that he knows of for certain. He has never smoked and does not wear oxygen at home. He was noted to have bilateral patchy opacities on chest x-ray. He was a little tachycardic. Hospital Course Hospital Course: He responded very well to the MATH+ protocol. He was weaned down to room air and his saturations were in the low to mid 90s. He was able to ambulate to the bathroom without getting short of breath. He will continue a prednisone taper at home. He received IV Solu-Medrol and 2 doses of ivermectin here. He will also continue vitamin supplementation at home. He was told to be very strict with his diet as the blood sugars may be elevated while he is on prednisone, but this effect will wear off as he comes off steroids. He verbalizes understanding. He has follow-up with his primary care provider in 1 week. His labs and examination were reassuring and he was discharged in stable condition. Physical Exam Vital Signs: Temp Pulse Resp BP Pulse Ox 97.5 F 96 16 187/97 H 95 03/27/20 15:23 03/27/20 15:23 03/27/20 15:23 03/27/20 15:23 03/27/20 15:23 Intake & Output 03/26/20 03/27/20 03/28/20 06:59 06:59 06:59 Intake Total 2625 2700 510 Output Total 1275 1375 Balance 1350 1325 510 Weight 101.4 kg 101.4 kg General appearance: PRESENT: cooperative, disheveled, no apparent distress, obese Respiratory exam: PRESENT: Clear to auscultation bilaterally, symmetrical, unlabored. ABSENT: accessory muscle use, chest wall tenderness, prolonged expiratory phase, rhonchi, wheezes, tachypnea Cardiovascular exam: PRESENT: +S1, +S2, RRR Pulses: PRESENT: normal carotid pulses Vascular exam: PRESENT: normal capillary refill GI/Abdominal exam: PRESENT: normal bowel sounds, soft. ABSENT: distended, guarding, rebound, tenderness Extremities exam: ABSENT: clubbing, pedal edema Musculoskeletal exam: PRESENT: normal inspection. ABSENT: deformity Neurological exam: PRESENT: alert, awake, oriented to person, oriented to place, oriented to time, oriented to situation Psychiatric exam: PRESENT: Appropriate affect, normal mood Skin exam: PRESENT: dry, warm Results Laboratory Results: WBC 15.6 10^3/uL (4.0-10.5) H 03/27/20 05:30 RBC 4.92 10^6/uL (4.35-5.55) 03/27/20 05:30 Hgb 13.4 g/dL (13.5-17.0) L 03/27/20 05:30 Hct 39.8 % (37.9-51.0) 03/27/20 05:30 MCV 81 fl (80-97) 03/27/20 05:30 MCH 27.3 pg (27.0-33.4) 03/27/20 05:30 MCHC 33.7 g/dL (32.0-36.0) 03/27/20 05:30 RDW 14.0 % (11.5-14.0) 03/27/20 05:30 Plt Count 349 10^3/uL (150-450) 03/27/20 05:30 Lymph % (Auto) 10.9 % (13-45) L 03/27/20 05:30 [place] % (Auto) 7.9 % (3-13) 03/27/20 05:30 Eos % (Auto) 0.0 % (0-6) 03/27/20 05:30 Baso % (Auto) 0.2 % (0-2) 03/27/20 05:30 Absolute Neuts (auto) 12.7 10^3/uL (1.7-8.2) H 03/27/20 05:30 Absolute Lymphs (auto) 1.7 10^3/uL (0.5-4.7) 03/27/20 05:30 Absolute Monos (auto) 1.2 10^3/uL (0.1-1.4) 03/27/20 05:30 Absolute Eos (auto) 0.0 10^3/uL (0.0-0.6) 03/27/20 05:30 Absolute Basos (auto) 0.0 10^3/uL (0.0-0.2) 03/27/20 05:30 Seg Neutrophils % 81.0 % (42-78) H 03/27/20 05:30 PT 13.3 SEC (11.4-15.4) 03/25/20 14:27 INR 0.99 03/25/20 14:27 APTT 31.6 SEC (23.5-35.8) 03/25/20 14:27 D-Dimer 0.95 ug/mL (0.00-0.50) H 03/27/20 05:30 Carbonic Acid 1.00 mmol/L (1.05-1.35) L 03/25/20 06:44 HCO3/H2CO3 Ratio 25:1 03/25/20 06:44 ABG pH 7.50 (7.35-7.45) H 03/25/20 06:44 ABG pCO2 33.1 mmHg (35-45) L 03/25/20 06:44 ABG pO2 56.0 mmHg (80-100) L 03/25/20 06:44 ABG HCO3 25.0 mmol/L (20-24) H 03/25/20 06:44 ABG Total CO2 26.0 mmol/L (23-27) 03/25/20 06:44 ABG O2 Saturation 91.7 % (94-98) L 03/25/20 06:44 ABG Base Excess 2.4 mmol/L 03/25/20 06:44 FiO2 2L 03/25/20 06:44 Sodium 136.7 mmol/L (137-145) L 03/27/20 05:30 Potassium 4.6 mmol/L (3.6-5.0) 03/27/20 05:30 Chloride 100 mmol/L (98-107) 03/27/20 05:30 Carbon Dioxide 26 mmol/L (22-30) 03/27/20 05:30 Anion Gap 11 (5-19) 03/27/20 05:30 BUN 35 mg/dL (7-20) H 03/27/20 05:30 Creatinine 1.24 mg/dL (0.52-1.25) 03/27/20 05:30 Est GFR ( Amer) > 60 (>60) 03/27/20 05:30 Est GFR (MDRD) Non-Af > 60 (>60) 03/27/20 05:30 Glucose 224 mg/dL (75-110) H 03/27/20 05:30 POC Glucose 269 mg/dL (70-110) H 03/27/20 12:03 Calcium 9.2 mg/dL (8.4-10.2) 03/27/20 05:30 Magnesium 2.1 mg/dL (1.6-2.3) 03/27/20 05:30 Ferritin 1010.00 ng/mL (17.9-464.0) H 03/27/20 05:30 Total Bilirubin 0.7 mg/dL (0.2-1.3) 03/27/20 05:30 Direct Bilirubin 0.5 mg/dL (0.0-0.4) H 03/27/20 05:30 Neonat Total Bilirubin Not Reportable 03/27/20 05:30 Neonat Direct Bilirubin Not Reportable 03/27/20 05:30 Neonat Indirect Bili Not Reportable 03/27/20 05:30 AST 53 U/L (17-59) 03/27/20 05:30 ALT 43 U/L (<50) 03/27/20 05:30 Alkaline Phosphatase 70 U/L (38-126) 03/27/20 05:30 Troponin I 0.016 ng/mL 03/25/20 01:46 C-Reactive Protein 53.2 mg/L (<10.0) H 03/27/20 05:30 Total Protein 6.1 g/dL (6.3-8.2) L 03/27/20 05:30 Albumin 3.3 g/dL (3.5-5.0) L 03/27/20 05:30 03/25/20 01:46 Troponin I 0.016 Impressions: Chest X-Ray 03/24/20 23:13 IMPRESSION: Development of bilateral COVID 19 pneumonia. Plan Time Spent: Greater than 30 Minutes Stroke Is this a Stroke Patient?: No Acute Heart Failure Is this a Heart Failure Patient?: No
== END 2020-03-27 16:10 | disposition home or self-care (01) | DRG 177 ==
LOC: ER 22:39 → EH 03-25 07:44 → 4S 03-25 11:52
PROVIDERS: ADMIT Family Medicine; ATTEND Family Medicine
DX: U07.1 COVID-19 (principal); J12.82 Pneumonia due to coronavirus disease 2019; J96.01 Acute respiratory failure with hypoxia; I10 Essential (primary) hypertension; E11.9 Type 2 diabetes mellitus without complications; E78.5 Hyperlipidemia, unspecified; E66.9 Obesity, unspecified; Z86.73 Personal history of transient ischemic attack (TIA), and cerebral infarction without residual deficits; Z79.899 Other long term (current) drug therapy
CPT/HCPCS: 36415; 71045; 80053; 82728; 82803; 82962; 83735; 84484; 85025; 85379; 85610; 85730; 86140; 87040; 93005; 93010; 96365; 96375; 99285; J0456; J0696; J1100; J1650; J1815; J2405; J2920; J3490; J7030; J7060